=== PATIENT | male | born 1940 | race Caucasian/White ===

== ENCOUNTER 2019-12-14 05:04 | Day surgery (SDC) | payer OTHER ==
[~2019-12-14] VITALS: Ht 189.2 cm; Wt 96.4 kg
[~2019-12-14 05:04] MED LIST: ADVAIR 250/501 DISK INH; ALEVE220 MG PO; BAYER CHEWABLE81 MG PO; K-DUR20 MEQ PO; LASIX20 MG PO; MEDROL DOSE PACK4 MG PO; NORVASC10 MG PO; PLAVIX75 MG PO; PRAVACHOL20 MG PO; PROAIR HFA8.5 GM INH; TENORMIN25 MG; TENORMIN25 MG PO
[2019-12-14 05:42] LABS: BASOPHILS 0.4 % (0-2); HEMATOCRIT 34.6 % (42.0-54.0); HEMOGLOBIN 10.5 g/dL (13.5-17.5); IMMATURE GRANULOCYTES 0.2 % (0-5); LYMPHOCYTES 18.4 % (15-50); MCH 26.2 pg (26.0-34.0); MCHC 30.3 g/dL (31.0-37.0); MCV 86.3 fL (80.0-100.0); MEAN PLATELET VOLUME 9.9 fL (7.4-10.4); MONOCYTES 12.8 % (2-11); NEUTROPHILS 65.2 % (40-80); RBC 4.01 10x6/uL (4.20-6.10); RDW 15.1 % (11.5-14.5); WBC 5.6 10x3/uL (4.8-10.8)
[2019-12-14 05:51] LABS: APTT 28.7 SECONDS (22.8-39.4); INR 1.06 (0.85-1.17); PROTIME 13.8 SECONDS (11.6-15.0)
[2019-12-14 05:52] LABS: PLATELET COUNT 190 10x3/uL (130-400)
[2019-12-14 05:53] LABS: ANION GAP 10.3 mmol/L (8-16); CALCIUM 8.3 mg/dL (8.5-10.1); CARBON DIOXIDE 26.4 mmol/L (21.0-32.0); CREATININE - SERUM 1.5 mg/dL (0.6-1.3); POTASSIUM - SERUM 3.7 mmol/L (3.5-5.1)
[2019-12-14] MEDS ORDERED: APAP325 MG PO (06:15)
[2019-12-14] MEDS ORDERED: CHLORTHALIDONE25 MG PO (06:16)
[2019-12-14] MEDS ORDERED: ZOCOR20 MG PO (06:16)
[2019-12-14] MEDS ORDERED: LISINOPRIL40 MG PO (06:16)
[2019-12-14] MEDS ORDERED: OMEPRAZOLE40 MG PO (06:16)
[2019-12-14] MEDS ORDERED: CARAFATE1 G PO (06:17)
[2019-12-14] MEDS ORDERED: SYMBICORT 16010.2 GM INH (06:17)
[2019-12-14] MEDS ORDERED: XOPENEX HFA15 GM INH (06:18)
[2019-12-14 06:25] VITALS: Ht 189.2 cm; Wt 96.4 kg
--- NOTE | 2019-12-14 09:19 | NUR ---
DC INSTRUCTIONS GIVEN TO PT. STATES UNDERSTANDING. DC'D IV CATH FULLY INTACT. PT IS READY TO BE DC'D FROM UNIT. WAITING FOR H&P TRAUMA DIRECTOR. WILL DC SHORTLY.
--- NOTE | 2019-12-14 09:45 | NUR ---
CURRENTLY WAITING FOR H&P STRATEGIC COMMUNICATIONS MANAGER. CALLED STRATEGIC COMMUNICATIONS MANAGER ROOM AND SPOKE TO MEAGHAN. SHE SAID IT IS BEING WORKED ON. WILL DC PT SHORTLY
--- NOTE | 2019-12-14 10:08 | NUR ---
H&P LONGITUDINAL FLOAT OPERATOR READY. PT WILL BE DC'D SHORTLY.
--- NOTE | 2019-12-14 10:12 | NUR ---
PT LEFT UNIT VIA WC AT 1010
--- NOTE | 2019-12-14 13:51 | OP ---
PATIENT NAME: KATHRYN MALDONADO MEDICAL RECORD: [id number] :38 LOCATION:D.OPS ADMISSION DATE: SURGEON: MARIA LUZ MARIE MD DATE OF OPERATION: 12/14/2019 PREOPERATIVE DIAGNOSES: 1. Gastroesophageal reflux, intractable. 2. Volume gastroesophageal reflux with probable food aspiration at night. 3. Fully anticoagulated on Plavix, he took his last dose last evening. 4. History of untreated adenocarcinoma by the patient's own admission. He has declined treatment. 5. History of gastric ulcer. POSTOPERATIVE DIAGNOSES: 1. Gastroesophageal reflux, intractable. 2. Volume gastroesophageal reflux with probable food aspiration at night. 3. Fully anticoagulated on Plavix, he took his last dose last evening. 4. History of untreated adenocarcinoma by the patient's own admission. He has declined treatment. 5. History of gastric ulcer. 6. Severe distal esophagitis with stricturing and possible Arceo's versus a malignancy. 7. Spontaneous punctate gastric hemorrhages with moderate antral and fundal gastritis. 8. Evidence of prior pyloric stricturing; however, the stricture was not too tight in that it would admit the gastroscope. PROCEDURES: 1. Esophagogastroduodenoscopy with antral and distal esophageal biopsies. 2. Balloon dilation of esophagus to 54-Micronesian with a through the catheter balloon. 3. Placement of one endoscopic clip within the antrum at a biopsy site for a post-procedural hemostasis. 4. Gold probe therapy for hemorrhage control at the site of punctate hemorrhages within the stomach. SURGEON: Maria Luz Marie MD PLASMA CENTER TECHNICIAN: None. BLOOD LOSS: Minimal. ANESTHESIA: IV sedation. COMPLICATIONS: None. The risks, possible complications and alternatives to the procedure were explained to the patient. He elects to proceed. ENDOSCOPIC COURSE: The patient was conveyed to endoscopy suite electively on 12/14/2019. IV sedation was induced by the anesthesia staff. A bite block was inserted. A gastroscope was inserted through the mouth. It was advanced easily into the hypopharynx. The esophagus was easily intubated as were the stomach and duodenum. Upon withdrawal, retroflexed and angulus views were obtained. Antral biopsies were obtained. The biopsy sites bled. Additionally, there were OPERATIVE REPORT [id number] KATHRYN MALDONADO other areas in the stomach with punctate hemorrhages and these hemorrhages were spontaneous and did not begin after contact with the gastric ortiz. I attempted complete hemostasis utilizing the gold probe cautery device. This was effective except at the biopsy sites where I had to obtain complete hemostasis by deploying one endoscopic clip. There was no further bleeding. I then withdrew into the cardia of the stomach. I advanced a [id number] balloon. I then sequentially dilated the entire length of the esophagus to 54-Micronesian with the balloon. The indication for the balloon dilation was distal esophageal stricturing. I then readvanced the gastroscope. I entered the stomach. I aspirated some of the gastric contents and then withdrew into the distal esophagus. Multiple distal esophageal biopsies were obtained in an area of severe distal esophagitis. I must rule out Arceo's or a malignancy in this patient. There was quite likelihood that at least Arceo's is present and there may be a malignancy as well. The gastroscope was then withdrawn under direct vision. There is no need for the patient to follow up with me in the office unless he develops a complication related to this operative procedure. I believe that code status needs to be addressed in this patient as he does have ongoing malignancy and he states he was not sure what he wants to happen when he succumbs to this malignancy. I believe that part of the patient's volume reflux is due to this distal esophageal stricture. So, hopefully balloon dilation of the stricture will help decrease his episodes of volume reflux and possibly aspiration, which occur at night. Should he develop a recurrent tight stricture in the distal esophagus due to a malignancy, then I would recommend esophageal stenting. Additionally, if longer term nutrition is desired and he does develop an esophageal stricture, then a gastrostomy tube would be an indication as well. TRANSINT:[id number] Voice Confirmation ID: [id number] DOCUMENT ID: [id number] MARIA LUZ MARIE MD at 1351 CC: KARLA PETIT MD and ABIMAEL GARCIA [id number] DICTATION DATE: 12/14/19856 GAME PROGRAMMER: 12/14/19 1012 [facility] 12/14/19 [facility] [address] [place] [address]
--- NOTE | 2019-12-14 13:51 | HP ---
PATIENT: KATHRYN MALDONADO MEDICAL RECORD: [id number] ACCOUNT: [id number] LOCATION:[facility] : 38 ADMISSION DATE: 12/14/19 PCP: KARLA PETIT MD HISTORY AND PHYSICAL EXAMINATION HISTORY: The patient is here for upper endoscopy. He has severe gastroesophageal reflux disease, history of gastric ulcer in the past and he wakes up in the middle of night with chest pain as well as with vomitus in his mouth and likely some degree of aspiration. The patient is being done in the hospital because he is ASA IV and it would be inappropriate to do at the [facility]. The patient is a poor historian and does not appear to be wanting to really make many decisions regarding his health care. I will say more about this below. ALLERGIES: PENICILLIN. CURRENT MEDICATIONS: Includes acetaminophen, chlorthalidone, Plavix, lisinopril, omeprazole, simvastatin, Sucralfate, Symbicort inhaler, Xopenex. The patient states that he took his Plavix yesterday. PAST MEDICAL AND SURGICAL HISTORY: Hypertension and hyperlipidemia. He is very hard of hearing. He has a history of adenocarcinoma, which was diagnosed in 2016 and the patient states he has had no treatment for it and does not want treatment for it. When I asked him what is going to happen when the lung cancer is going to kill him or he is going to end up on life support, he says that he has not decided yet, but he states that he does not want any treatment for his adenocarcinoma and according to the chart the patient has a left upper lobe 2 cm mass and a 3 cm right upper lobe mass. These were seen on PET scan. OTHER DIAGNOSES: Osteoarthritis, COPD, emphysema, which is severe, coronary artery disease with stents with history of a non-STEMI. He had exposure to [place]. He has been diagnosed with abdominal aortic aneurysm, he has got history of thyroid nodule, mitral regurgitation, chronic kidney disease stage III, obstructive sleep apnea, the patient does not want CPAP. Seborrheic keratoses, essential tremor, gastric ulcer. Lung biopsy, also history of pneumothorax, history of prostate surgery. SOCIAL HISTORY: Former smoker. FAMILY HISTORY: Noncontributory. PHYSICAL EXAMINATION: GENERAL: The patient does appear acutely ill. Also appears chronically ill. VITAL SIGNS: Reviewed. EARS: External ears appear normal. EYES: Extraocular movements are intact. He has got drooping of left upper eyelid. PULMONARY: Mildly labored. Some rhonchi at the bases. PSYCHIATRIC: Flat affect. NEUROLOGIC: There may be some evidence of loss of higher cognitive function. IMPRESSION 1. Gastroesophageal reflux. 2. History of gastric ulcer. 3. Volume reflux with probable aspiration. HISTORY AND PHYSICAL [id number] KATHRYN MALDONADO PLAN: EGD. TRANSINT:[id number] Voice Confirmation ID: [id number] DOCUMENT ID: [id number] MARIA LUZ MARIE MD at 1351 CC: KARLA PETIT MD [id number] DICTATION DATE: 12/14/19 0802 MANAGER BENCH: 12/14/19 0959 [facility] 12/14/19 [id number] [place] [address]
== END 2019-12-14 10:10 | disposition home or self-care (01) ==
LOC: D.OPS 05:04
PROVIDERS: Anesthesiology; ATTEND Surgery
DX: K21.0 Gastro-esophageal reflux disease with esophagitis (principal); E78.5 Hyperlipidemia, unspecified; C34.92 Malignant neoplasm of unspecified part of left bronchus or lung; J44.9 Chronic obstructive pulmonary disease, unspecified; I71.4 Abdominal aortic aneurysm, without rupture; I12.9 Hypertensive chronic kidney disease with stage 1 through stage 4 chronic kidney disease, or unspecified chronic kidney disease; N18.3 Chronic kidney disease, stage 3 (moderate); K22.2 Esophageal obstruction